=== PATIENT | female | born 1945 | race Caucasian/White ===

== ENCOUNTER → 2024-08-14 10:48 | Outpatient (BNVA) | payer MEDICARE, SELFPAY | PROVIDERS: PCP Student in an Organized Health Care Education/Training Program; Referring Provider Student in an Organized Health Care Education/Training Program; Visit Provider Specialist | DX: G30.9 Alzheimer's disease, unspecified (principal); F02.80 Dementia in other diseases classified elsewhere, unspecified severity, without behavioral disturbance, psychotic disturbance, mood disturbance, and anxiety; G35 Multiple sclerosis | CPT/HCPCS: 36415; 82607; 96116; 99204; 99205 ==

== ENCOUNTER → 2024-10-30 11:44 | Outpatient (BNVA) | payer MEDICARE, SELFPAY | PROVIDERS: PCP Student in an Organized Health Care Education/Training Program; Visit Provider Specialist | DX: G30.9 Alzheimer's disease, unspecified (principal); F02.80 Dementia in other diseases classified elsewhere, unspecified severity, without behavioral disturbance, psychotic disturbance, mood disturbance, and anxiety; G35 Multiple sclerosis | CPT/HCPCS: 36415; 82542; 83520; 99214 ==

== ENCOUNTER → 2025-05-01 11:39 | Outpatient (BNVA) | payer MEDICARE, SELFPAY | PROVIDERS: PCP Student in an Organized Health Care Education/Training Program; Visit Provider Specialist | DX: G30.9 Alzheimer's disease, unspecified (principal); F02.80 Dementia in other diseases classified elsewhere, unspecified severity, without behavioral disturbance, psychotic disturbance, mood disturbance, and anxiety; G35 Multiple sclerosis | CPT/HCPCS: 36415; 80053; 82233; 82234; 82542; 83520; 84443; 85025; 99215 ==

== ENCOUNTER 2025-06-07 09:10 | Outpatient (CLI) | payer MEDICARE, SELFPAY ==
--- NOTE | 2025-06-07 09:17 | MR_ITS ---
WS: [id number] MRI BRAIN WITHOUT CONTRAST HISTORY: G30.9 - Alzheimer's disease, unspecified, patient has a history of multiple sclerosis. COMPARISON: None available. TECHNIQUE: Diffusion imaging, multiplanar T1, T2 and FLAIR imaging obtained. Normal diffusion imaging. No infarct. Moderate to severe cerebral and cerebellar atrophy. Numerous T2 and FLAIR signal hyperintensities in the periventricular and subcortical white matter distributions in the supratentorial white matter. Some of these white matter lesions are closely associated with the corpus callosum. There are T2 and FLAIR signal lesions associated with the inferior temporal lobes also which is often seen with MS. No edema within the espinosa matter. Mild hippocampal atrophy. No large territory infarct. No hemorrhage. Enlarged ventricles and extra-axial spaces on the basis of atrophy. No inferior displacement of cerebellar tonsils. The sella turcica and pituitary gland are unremarkable. Dural venous sinuses and [place] demonstrate no abnormality on this unenhanced studies. Paranasal sinuses: Clear. Mastoid air cells: Normal. Calvarium and scalp: Intact. MR/MR head wo con* [id number] IMPRESSION: 1. Normal diffusion imaging. No acute infarct. 2. Moderate to severe cerebral and cerebellar atrophy. 3. Mild hippocampal atrophy. 4. Moderate increased signal in the supratentorial white matter. Some of these white matter lesions do contact the corpus callosum and are close associated w ith the inferior temporal lobes consistent with history of MS. Suspect superimp osed small vessel changes also. 5. No signal abnormalities within the cortex. 6. No hemorrhage.
== END 2025-06-07 09:11 | disposition home or self-care (01) ==
LOC: RAD 09:12
PROVIDERS: PCP Student in an Organized Health Care Education/Training Program; Visit Provider Specialist
DX: G30.9 Alzheimer's disease, unspecified (principal); F02.80 Dementia in other diseases classified elsewhere, unspecified severity, without behavioral disturbance, psychotic disturbance, mood disturbance, and anxiety; G31.9 Degenerative disease of nervous system, unspecified; R90.82 White matter disease, unspecified
CPT/HCPCS: 70551